=== PATIENT | female | born 1975 | race Caucasian/White ===

== ENCOUNTER 2022-03-07 15:02 | Emergency (ER) | payer OTHER, SELFPAY ==
[2022-03-07 15:14] VITALS: BP 97/54; PULSE 82; RESP 18; TEMP 36.1; O2SAT 100
--- NOTE | 2022-03-07 15:15 | ED.NAVMDI ---
HPI - Nausea/Vomiting/Diarrhea General Chief complaint: Upper Respiratory Infection Stated complaint: Vomiting,Body Aches Time Seen by Provider: 03/07/22 15:19 Source: patient and RN notes reviewed Mode of arrival: ambulatory Limitations: no limitations History of Present Illness HPI Narrative: 47-year-old female presents with concern for vomiting 4-5 times since the middle of the night, body aches, fever and chills. She denies upper respiratory symptoms such as cough, shortness of breath, nasal congestion rhinorrhea, sore throat. She denies taking any [id number] medications. MD elicited complaint: nausea and vomiting Related Data Home Medications Medication Instructions Recorded Confirmed fexofenadine 180 mg tablet 180 mg DAILY 03/07/22 03/07/22 (Allergy Relief (fexofenadine)) sertraline 50 mg tablet (Zoloft) 50 mg PO DAILY 03/07/22 03/07/22 trazodone 50 mg tablet 50 mg PO HS PRN Sleep 03/07/22 03/07/22 Allergies Allergy/AdvReac Type Severity Reaction Status Date / Time Sulfa (Sulfonamide AdvReac Hives Verified 03/07/22 15:21 Antibiotics) Review of Systems Review of Systems: CONSTITUTIONAL: Reports malaise, chills, fever. ENT: Denies rhinorrhea, congestion, sinus pain, otalgia or sore throat. CARDIOVASCULAR: Denies chest pain, palpitations, or edema. RESPIRATORY: Denies cough or dyspnea. GASTROINTESTINAL: Denies abdominal pain, diarrhea, bloody, or mucous stools. Reports vomiting and nausea GENITOURINARY: Denies dysuria or hematuria. MUSCULOSKELETAL: Reports myalgia. NEUROLOGIC: Denies headache. All systems reviewed & are unremarkable except as noted in HPI and below PMFSH Comments At time of signature, agree with nursing past medical, surgical, social and family history. There is no relevant family history pertinent to the presenting complaint Exam Narrative: GENERAL: Well-appearing, well-nourished, and in no acute distress. HEAD: Normocephalic, atraumatic. EYES: PERRLA, conjunctivae clear, and EOMI. ENT: Nares clear, turbinates pink, no rhinorrhea or epistaxis. Mucous membranes moist. Oropharynx without edema, erythema, or lesions. Tonsils not enlarged and without exudate. NECK: Supple. No lymphadenopathy CHEST: Speaks in full sentences. No respiratory distress. HEART: Regular rate and rhythm. ABDOMEN: Soft, flat, nondistended, nontender. No guarding, rebound tenderness, or rigidity. No pulsatile masses. Bowel sounds present in all four quadrants. No organomegaly. Negative ?s sign. No periumbilical tenderness. No Supra public tenderness or distension. SKIN: Warm, dry, no rash. NEURO: Alert and oriented x3. PSYCH: Normal mood and affect Course Course Emergency Course: Patient is aware of diagnosis, understands and agrees to treatment plan. Anticipatory guidance given. Patient agrees to follow-up as directed and is aware of reasons to seek care at the emergency department. Portions of this record may have been created with voice recognition software Level of Care: Express Care Visit Vital Signs Vital signs: Vital Signs Temperature 97.0 F L 03/07/22 15:14 Pulse Rate 82 03/07/22 15:14 Respiratory Rate 18 03/07/22 15:14 Blood Pressure 97/54 L 03/07/22 15:14 Pulse Oximetry 100 03/07/22 15:14 Oxygen Delivery Room Air 03/07/22 15:14 Temperature 97.0 F L 03/07/22 15:14 Pulse Rate 82 03/07/22 15:14 Respiratory Rate 18 03/07/22 15:14 Blood Pressure 97/54 L 03/07/22 15:14 Pulse Oximetry 100 03/07/22 15:14 Oxygen Delivery Room Air 03/07/22 15:14 Reviewed. MDM - Nausea/Vomiting/Diarrhea MDM Narrative Medical decision making narrative: No evidence of pancreatitis, AAA, cholecystitis, choledocholithiasis, cholangitis, mesenteric ischemia, small bowel obstruction, diverticulitis, colitis, appendicitis, or pelvic etiology such as ovarian torsion, TOA, or ectopic . Patient has no history of peptic ulcer, H. pylori, chronic aspirin NSAI
== END 2022-03-07 15:36 | disposition home or self-care (01) ==
PROVIDERS: Emergency Provider Nurse Practitioner; PCP Family Medicine
DX: R11.2 Nausea with vomiting, unspecified (principal); Z98.84 Bariatric surgery status; F41.9 Anxiety disorder, unspecified; F42.9 Obsessive-compulsive disorder, unspecified
CPT/HCPCS: 87804; 99203; G0463

== ENCOUNTER 2022-03-30 16:27 | Emergency (ER) | payer OTHER, SELFPAY ==
[2022-03-30 16:46] VITALS: BP 114/68; PULSE 91; RESP 18; TEMP 37.5; O2SAT 100
--- NOTE | 2022-03-30 17:31 | ED.URI ---
HPI - URI/Sore Throat General Chief Complaint: Upper Respiratory Infection Stated Complaint: Sore Throat,Body Aches,Chills Time Seen by Provider: 03/30/22 17:22 Source: patient Mode of arrival: ambulatory Limitations: no limitations History of Present Illness HPI Narrative: Patient presents today complaining of a sore throat since yesterday with body aches, chills, low fever, and sinus pressure since today. Works in a daycare. Son was diagnosed with influenza 6 days ago. She has been taking Tylenol mild relief. Related Data Home Medications Medication Instructions Recorded Confirmed fexofenadine 180 mg tablet 180 mg DAILY 03/07/22 03/30/22 (Allergy Relief (fexofenadine)) sertraline 50 mg tablet (Zoloft) 50 mg PO DAILY 03/07/22 03/30/22 trazodone 50 mg tablet 50 mg PO HS PRN Sleep 03/07/22 03/30/22 Allergies Allergy/AdvReac Type Severity Reaction Status Date / Time Sulfa (Sulfonamide AdvReac Hives Verified 03/07/22 15:21 Antibiotics) Review of Systems Review of Systems: CONSTITUTIONAL: Denies sweats.+ Body aches, fever, chills EYES: Denies visual changes, redness, or discharge. ENT: Denies rhinorrhea, otalgia.+ sinus pressure, sore throat CARDIOVASCULAR: Denies chest pain, palpitations, or edema. RESPIRATORY: Denies cough or dyspnea. GASTROINTESTINAL: Denies abdominal pain, nausea, vomiting, or diarrhea. GENITOURINARY: Denies dysuria or hematuria. SKIN: Denies rash, itching, or wounds. MUSCULOSKELETAL: Denies back pain, joint pain, or myalgia. NEUROLOGIC: Denies headache, numbness, tingling, or weakness. PSYCH: Denies depression or anxiety. PMFSH Surgical History Surgical History (Updated 03/30/22 @ 17:33 by Svetlana Diaz, NEONATAL NURSE, ) H/O gastric sleeve Comments At time of signature, I have reviewed and agree with nursing past medical, surgical, social and family history unless otherwise noted. Please see nursing chart for further information. There is no relevant family history pertinent to the presenting complaint Exam Narrative: GENERAL: mildly ill-appearing, well-nourished, and in no acute distress. HEAD: Normocephalic, atraumatic. EYES: EOMI. No redness or drainage. Conjunctivae normal. ENT: Mucous membranes pink and moist. Nares clear. No rhinorrhea. TMs normal bilaterally. Throat erythematous without edema or exudate. Uvula midline. NECK: Normal AROM. Supple. No lymphadenopathy. CHEST: No respiratory distress. Clear to auscultation. HEART: Regular rate and rhythm. No murmur appreciated. Normal peripheral pulses. EXTREMITIES: Normal range of motion. No edema. SKIN: Warm, dry, no rash. Capillary refill normal. Normal skin turgor. NEURO: No focal deficits. Alert and oriented x3. Gait steady. PSYCH: Normal affect. No signs of depression or anxiety. Course Course Level of Care: Express Care Visit Vital Signs Vital signs: Vital Signs Temperature 99.5 F 03/30/22 16:46 Pulse Rate 91 03/30/22 16:46 Respiratory Rate 18 03/30/22 16:46 Blood Pressure 114/68 03/30/22 16:46 Pulse Oximetry 100 03/30/22 16:46 Oxygen Delivery Room Air 03/30/22 16:46 Temperature 99.5 F 03/30/22 16:46 Pulse Rate 91 03/30/22 16:46 Respiratory Rate 18 03/30/22 16:46 Blood Pressure 114/68 03/30/22 16:46 Pulse Oximetry 100 03/30/22 16:46 Oxygen Delivery Room Air 03/30/22 16:46 reviewed MDM - URI/Sore Throat Differential Diagnosis Differential diagnosis: Likely upper respiratory infection, viral infection, influenza, pharyngitis and other ( strep throat) Lab Data Attestation: I reviewed the patient's lab results. Lab results narrative: rapid strep positive Labs: Influenza A Screen Negative Reference Range: Negative Influenza B Screen Negative Reference Range: Negative Critical Care Time Critical Care Time Critic
== END 2022-03-30 17:53 | disposition home or self-care (01) ==
PROVIDERS: Emergency Provider Nurse Practitioner; PCP Family Medicine
DX: J02.0 Streptococcal pharyngitis (principal)
CPT/HCPCS: 87804; 87880; 99213; G0463